=== PATIENT | male | born 1950 | race African-American/Black ===

== ENCOUNTER 2017-07-12 00:09 | Emergency (ER) | payer SELFPAY ==
[~2017-07-12] VITALS: Ht 188 cm; Wt 97.5 kg
[2017-07-12 00:30] VITALS: BP 142/91
== END 2017-07-12 00:33 | disposition left against medical advice (07) ==
LOC: EDBD 00:09 → ER 00:09
DX: R55 Syncope and collapse (principal); Z53.21 Procedure and treatment not carried out due to patient leaving prior to being seen by health care provider